=== PATIENT | female | born 1990 | race Caucasian/White ===

== ENCOUNTER → 2023-12-07 06:45 | Outpatient (REF) | payer BC, SELFPAY | LOC: HWRAD 06:45 | PROVIDERS: ATTENDING PHYSICIAN Family Medicine | DX: R10.11 Right upper quadrant pain (principal) | CPT/HCPCS: 76700 ==

== ENCOUNTER → 2024-10-18 13:31 | Outpatient (REF) | payer BC, SELFPAY | LOC: HWRAD 13:31 | PROVIDERS: ATTENDING PHYSICIAN Obstetrics & Gynecology; FAMILY PHYSICIAN Internal Medicine | DX: N83.202 Unspecified ovarian cyst, left side (principal) | CPT/HCPCS: 76830; 76856 ==